=== PATIENT | male | born 1995 | race Two or more races ===

== ENCOUNTER 2016-11-14 18:08 | Emergency (ER) | payer OTHER ==
[~2016-11-14] VITALS: Ht 170.2 cm; Wt 64.9 kg
[2016-11-14 20:58] VITALS: BP 125/72
[2016-11-14] MEDS ORDERED: CYCLOBENZAPRINE HCL 10 MG TAB PO ONE (22:15)
[2016-11-14] MEDS ORDERED: IBUPROFEN 600 MG TAB PO ONE (22:15)
== END 2016-11-14 22:24 | disposition home or self-care (01) ==
LOC: ER 18:18
DX: M54.16 Radiculopathy, lumbar region (principal); M79.1 Myalgia; F17.210 Nicotine dependence, cigarettes, uncomplicated; X50.1XXA Overexertion from prolonged static or awkward postures, initial encounter; Y93.89 Activity, other specified; Y99.8 Other external cause status; Y92.89 Other specified places as the place of occurrence of the external cause